=== PATIENT | male | born 1960 | race American Indian/Alaskan Native ===

== ENCOUNTER 2020-11-25 04:40 | Emergency (ER) | payer SELFPAY ==
[2020-11-25 04:59] VITALS: BP 169/92
== END 2020-11-25 05:30 | disposition left against medical advice (07) ==
LOC: ED 04:40
DX: M79.672 Pain in left foot (principal); M79.671 Pain in right foot; Z53.21 Procedure and treatment not carried out due to patient leaving prior to being seen by health care provider

== ENCOUNTER 2020-11-25 07:58 | Emergency (ER) | payer SELFPAY ==
--- NOTE | 2020-11-25 08:27 | Event Note ---
ED Screening Note ED Screening Note: SEEN INITIALLY AT WINDOW AND PT CO B FOOT PAIN CHECKED IN WITH BPM DEVELOPER FOR HBP This initial assessment/diagnostic orders/clinical plan/treatment(s) is/are subject to change based on patients health status, clinical progression and re- assessment by fellow clinical providers in the ED. Further treatment and workup at subsequent clinical providers discretion. Patient/guardian urged not to elope from the ED as their condition may be serious if not clinically assessed and managed. Initial orders include: CALLED FOR REEXAM 0830 AND NO ANSWER
[2020-11-25] MEDS ORDERED: IBUPROFEN 800 MG TAB PO ONE (11:29)
--- NOTE | 2020-11-25 11:29 | Emergency Department Report ---
ED General Adult HPI - General Chief complaint: High BP Stated complaint: FEET PAIN/HIGH BLOOD PRESSURE PUI?: No Time Seen by Provider: 11/25/20 10:41 Source: patient Mode of arrival: Ambulatory Limitations: No Limitations - History of Present Illness Initial comments: Patient is a 60-year-old -[place] male that comes to the emergency room for the second time today: See overnight note. When I checked him and he was complaining of bilateral foot pain. However, when the triage nurse saw him he said he was here for elevated blood pressure. He states that he is on amlodipine at home. He denies chest pain, shortness of breath, cough, fever. I suspect a social component to this visit. Want to look for patient once while in waiting room and he was not there. He then did return. Patient ambulatory, nontoxic and [id number] on arrival to the ER. He denies any trauma to his feet. Improves with: none Worsens with: none Associated Symptoms: denies other symptoms Treatments Prior to Arrival: none - Related Data Allergies Allergy/AdvReac Type Severity Reaction Status Date / Time No Known Allergies Allergy Verified 11/25/20 08:01 ED Review of Systems ROS: Stated complaint: FEET PAIN/HIGH BLOOD PRESSURE Other details as noted in HPI Comment: All other systems reviewed and negative ED Past Medical Hx - Past Medical History Previous Medical History?: Yes Hx Psychiatric Treatment: Yes (schizo) - Surgical History Past Surgical History?: No - Family History Family history: no significant - Social History Smoking Status: Unknown if ever smoked Substance Use Type: None ED Physical Exam - General Limitations: No Limitations General appearance: alert, in no apparent distress - Head Head exam: Present: atraumatic, normocephalic - Eye Eye exam: Present: normal appearance - ENT ENT exam: Present: mucous membranes moist - Neck Neck exam: Present: normal inspection - Respiratory Respiratory exam: Present: normal lung sounds bilaterally. Absent: respiratory distress - Cardiovascular Cardiovascular Exam: Present: regular rate, normal rhythm. Absent: systolic murmur, diastolic murmur, rubs, gallop - GI/Abdominal GI/Abdominal exam: Present: soft, normal bowel sounds - Rectal Rectal exam: Present: deferred - Extremities Exam Extremities exam: Present: normal inspection - Back Exam Back exam: Present: normal inspection - Neurological Exam Neurological exam: Present: alert, oriented X3 - Psychiatric Psychiatric exam: Present: normal affect, normal mood - Skin Skin exam: Present: warm, dry, intact, normal color. Absent: rash ED Course Vital Signs 11/25/20 11/25/20 11/25/20 08:05 11:34 12:49 Temperature 99.3 F Pulse Rate 90 62 61 Respiratory 20 18 Rate Blood Pressure 186/96 Blood Pressure 169/111 185/114 [Left] O2 Sat by Pulse 99 96 Oximetry ED Medical Decision Making - Medical Decision Making Acute on chronic hypertension no cp no sob no headache co b foot pain- given motrin Here overnight as well states he is taking his amlodipine ambulatory and in nad in ER taking po LEFT ER PER RN Vital Signs 11/25/20 11/25/20 08:05 11:34 Temperature 99.3 F Pulse Rate 90 62 Respiratory 20 Rate Blood Pressure 186/96 Blood Pressure 169/111 [Left] O2 Sat by Pulse 99 Oximetry - Differential Diagnosis htn Critical care attestation.: If time is entered above; I have spent that time in minutes in the direct care of this critically ill patient, excluding procedure time. ED Disposition Clinical Impression: Hypertension, Foot pain, bilateral Disposition: Z-07 ELOPED Is pt being admited?: No Does the pt Need Aspirin: No Condition: Stable Instructions: Hypertension (ED) Referrals: LEFTY HENDERSON MD [Staff Physician] - 3-5 Days Time of Disposition: 11:36
[2020-11-25] MEDS ORDERED: cloNIDine 0.2 MG TAB PO ONE (11:32)
[2020-11-25 12:51] VITALS: BP 185/114
== END 2020-11-25 13:00 | disposition left against medical advice (07) ==
LOC: ED 07:58
DX: I10 Essential (primary) hypertension (principal); M79.672 Pain in left foot; M79.671 Pain in right foot; F20.9 Schizophrenia, unspecified
CPT/HCPCS: 99282

== ENCOUNTER 2021-12-26 08:40 | Inpatient (IN) | payer MEDICAID ==
--- NOTE | 2021-12-26 09:41 | XRay Report ---
CHEST 2 VIEWS INDICATION / CLINICAL INFORMATION: CHEST. COMPARISON: 12/21/2021 FINDINGS: SUPPORT DEVICES: None. HEART / MEDIASTINUM: No significant abnormality. LUNGS / PLEURA: Mild interstitial edema and small moderate bilateral pleural effusions, right greater than left have improved. No pneumothorax. ADDITIONAL FINDINGS: No significant additional findings. IMPRESSION: 1. Resolving CHF Signer Name: Nimesh Sanon MD Signed: 12/26/2021 9:37 AM Workstation Name: [id number]
[2021-12-26 10:06] LABS: Basophils % (Auto) 0.7 % (0.0-1.8); Eosinophils # (Auto) 0.1 K/mm3 (0.0-0.4); Eosinophils % (Auto) 3.1 % (0.0-4.3); Hematocrit 28.9 % (35.5-45.6); Hemoglobin 8.7 gm/dl (11.8-15.2); Lymphocytes # (Auto) 0.6 K/mm3 (1.2-5.4); Lymphocytes % (Auto) 13.4 % (13.4-35.0); Mean Corpuscular HGB Conc 30 % (32-34); Mean Corpuscular Volume 72 fl (84-94); Monocytes # (Auto) 0.4 K/mm3 (0.0-0.8); Monocytes % (Auto) 9.6 % (0.0-7.3); Platelet Count 449 K/mm3 (140-440); Red Blood Count 4.02 M/mm3 (3.65-5.03); Red Cell Distribution Width 19.8 % (13.2-15.2)
[2021-12-26 10:38] LABS: Albumin 3.2 g/dL (3.9-5); Calcium 9.2 mg/dL (8.4-10.2)
[2021-12-26] MEDS ORDERED: NITROGLYCERIN 0.4 MG TAB SUBL SL ONE (21:24)
[2021-12-26] MEDS ORDERED: FUROSEMIDE 40 MG/4 ML INJ IV ONE (21:24)
[2021-12-26] MEDS ORDERED: ASPIRIN 81 MG TAB CHEW PO ONE (21:24)
[2021-12-26] MEDS ORDERED: ALBUTEROL 2.5 MG/3 ML NEBU IH STA (21:24)
[2021-12-26] MEDS ORDERED: IPRATROPIUM 0.02% NEBU 2.5 ML IH STA (21:24)
--- NOTE | 2021-12-26 21:29 | Emergency Department Report ---
ED General Adult HPI - General Chief complaint: Chest Pain Stated complaint: CHEST PAIN Time Seen by Provider: 12/26/21 21:06 Source: EMS Mode of arrival: Ambulatory Limitations: No Limitations - History of Present Illness Initial comments: Patient presents with complaints of chest pain, retrosternal, sharp/tightness, radiating to R shoulder, 10/10, not worsened or relieved by anything, associated with SOB, palpitations. Denies diaphoresis. Endorses leg swelling bilaterally but denies pain in his calves. Was recently discharged after a stay for the same complaints. No stress test was done @ the time. No stress test or cardiac cath in last 2 years in system. - Related Data Home Medications Medication Instructions Recorded Confirmed Last Taken Dorzolamide HCl/Timolol Maleat 1 drop UD DAILY 12/22/21 12/22/21 1 Day Ago [Dorzolamide-Timolol Eye Drops] ~12/21/21 Furosemide [Lasix] 40 mg PO DAILY 12/22/21 12/22/21 1 Day Ago ~12/21/21 Hydralazine HCl 50 mg BID 12/22/21 12/22/21 1 Day Ago ~12/21/21 50 mg Isosorbide Dinitrate [Isordil] 10 mg PO DAILY 12/22/21 12/22/21 1 Day Ago ~12/21/21 10 mg Latanoprost 0.005% 0.005 drop UD DAILY 12/22/21 12/22/21 1 Day Ago ~12/21/21 drops Potassium 20 mg PO DAILY 12/22/21 12/22/21 1 Day Ago ~12/21/21 20 mg amLODIPine 10 mg PO DAILY 12/22/21 12/22/21 1 Day Ago ~12/21/21 10 mg carvediloL [Coreg] 12.5 mg PO BID 12/22/21 12/22/21 1 Day Ago ~12/21/21 12.5mg glipiZIDE [Glucotrol] 5 mg PO BID 12/22/21 12/22/21 1 Day Ago ~12/21/21 40 mg Allergies Allergy/AdvReac Type Severity Reaction Status Date / Time No Known Allergies Allergy Verified 12/21/21 17:42 ED Review of Systems ROS: Stated complaint: CHEST PAIN Other details as noted in HPI Comment: All other systems reviewed and negative Constitutional: denies: chills, fever ED Past Medical Hx - Past Medical History Hx Hypertension: Yes Hx Heart Attack/AMI: No Hx Congestive Heart Failure: Yes Hx Diabetes: Yes Hx Deep Vein Thrombosis: No Hx Liver Disease: No Hx Arthritis: No Hx Psychiatric Treatment: Yes (schizo) Hx Asthma: Yes Hx COPD: No Hx HIV: No - Surgical History Hx Coronary Stent: No Hx Pacemaker: No Hx Internal Defibrillator: No - Social History Smoking Status: Never Smoker - Medications Home Medications: Home Medications Medication Instructions Recorded Confirmed Last Taken Type Dorzolamide HCl/Timolol Maleat 1 drop UD DAILY 12/22/21 12/22/21 1 Day Ago History [Dorzolamide-Timolol Eye Drops] ~12/21/21 Furosemide [Lasix] 40 mg PO DAILY 12/22/21 12/22/21 1 Day Ago History ~12/21/21 Hydralazine HCl 50 mg BID 12/22/21 12/22/21 1 Day Ago History ~12/21/21 50 mg Isosorbide Dinitrate [Isordil] 10 mg PO DAILY 12/22/21 12/22/21 1 Day Ago History ~12/21/21 10 mg Latanoprost 0.005% 0.005 drop UD DAILY 12/22/21 12/22/21 1 Day Ago History ~12/21/21 drops Potassium 20 mg PO DAILY 12/22/21 12/22/21 1 Day Ago History ~12/21/21 20 mg amLODIPine 10 mg PO DAILY 12/22/21 12/22/21 1 Day Ago History ~12/21/21 10 mg carvediloL [Coreg] 12.5 mg PO BID 12/22/21 12/22/21 1 Day Ago History ~12/21/21 12.5mg glipiZIDE [Glucotrol] 5 mg PO BID 12/22/21 12/22/21 1 Day Ago History ~12/21/21 40 mg ED Physical Exam - General Limitations: No Limitations General appearance: alert, in no apparent distress - Head Head exam: Present: atraumatic, normocephalic - Eye Eye exam: Present: PERRL, EOMI - ENT ENT exam: Present: mucous membranes moist, other (airway patent) - Neck Neck exam: Present: other (supple; no JVD) - Respiratory Respiratory exam: Present: other (poor air entry, prolonged expiratory phase, diffuse expiratory wheezes, no use of ARMIN) - Cardiovascular Cardiovascular Exam: Present: regular rate. Absent: rubs, gallop - GI/Abdominal GI/Abdominal exam: Present: soft, normal bowel sounds. Absent: distended, tenderness - Extremities Exam Extremities exam: Present: other (2+ edema in shins bilaterally, R=L; non tender calves; neg Hector's sign bilaterally) - Back Exam Back exam: Present: full ROM. Absent: CVA tenderness (R), CVA tenderness (L) - Neurological Exam Neurological exam: Present: alert, oriented X3, CN II-XII intact. Absent: motor sensory deficit - Skin Skin exam: Present: warm, normal color ED Course Vital Signs 12/26/21 12/26/21 12/26/21 08:44 21:07 21:10 Temperature 98 F Pulse Rate 90 87 Respiratory 18 24 Rate Blood Pressure 136/78 160/98 [Right] O2 Sat by Pulse 97 97 Oximetry ED Medical Decision Making - Lab Data Result diagrams: 12/26/21 09:16 12/26/21 09:16 Laboratory Tests 12/26/21 12/26/21 12/26/21 09:16 09:16 12:04 WBC 4.3 L RBC 4.02 Hgb 8.7 L Hct 28.9 L MCV 72 L MCH 22 L MCHC 30 L RDW 19.8 H Plt Count 449 H Lymph % (Auto) 13.4 [place] % (Auto) 9.6 H Eos % (Auto) 3.1 Baso % (Auto) 0.7 Lymph # (Auto) 0.6 L [place] # (Auto) 0.4 Eos # (Auto) 0.1 Baso # (Auto) 0.0 Seg Neutrophils % 73.2 H Seg Neutrophils # 3.2 Sodium 140 Potassium 3.6 Chloride 103.7 Carbon Dioxide 26 Anion Gap 14 BUN 37 H Creatinine 2.7 H Estimated GFR 29 BUN/Creatinine Ratio 14 Glucose 407 H Calcium 9.2 Total Bilirubin 0.30 AST 20 ALT 24 Alkaline Phosphatase 186 H Troponin T 0.019 0.013 Total Protein 6.8 Albumin 3.2 L Albumin/Globulin Ratio 0.9 12/26/21 17:35 WBC RBC Hgb Hct MCV MCH MCHC RDW Plt Count Lymph % (Auto) [place] % (Auto) Eos % (Auto) Baso % (Auto) Lymph # (Auto) [place] # (Auto) Eos # (Auto) Baso # (Auto) Seg Neutrophils % Seg Neutrophils # Sodium Potassium Chloride Carbon Dioxide Anion Gap BUN Creatinine Estimated GFR BUN/Creatinine Ratio Glucose Calcium Total Bilirubin AST ALT Alkaline Phosphatase Troponin T 0.011 Total Protein Albumin Albumin/Globulin Ratio CXR: bilateral infiltrates EKG: HR 84, SR, nml MI, narrow QRS, TWF/I in I, aVL, II, III, aVF, V4 - V6, no significant ST changes in contiguous leads HEART score 6 Critical care attestation.: If time is entered above; I have spent that time in minutes in the direct care of this critically ill patient, excluding procedure time. ED Disposition Clinical Impression: CHF exacerbation, Asthma exacerbation, Chest pain Disposition: ADMITTED INPATIENT Is pt being admited?: Yes Does the pt Need Aspirin: No Condition: Stable Instructions: Nonspecific Chest Pain, Adult Time of Disposition: 21:30 (Patient admitted to Dr. Rodarte. Sign out was called by me to the admitting physician.)
[2021-12-26] MEDS ORDERED: MAGNESIUM HYDROXIDE (MOM) ORAL LIQD UDC PO PRN (22:16)
[2021-12-26] MEDS ORDERED: NITROGLYCERIN 0.4 MG TAB SUBL SL PRN (22:16)
[2021-12-26] MEDS ORDERED: ACETAMINOPHEN 325 MG TAB PO PRN ×2 (22:16)
[2021-12-26] MEDS ORDERED: MORPHINE 4 MG/1 ML INJ IV PRN ×2 (22:16)
[2021-12-26] MEDS ORDERED: MORPHINE 2 MG/1 ML INJ IV PRN ×2 (22:16)
[2021-12-26] MEDS ORDERED: ONDANSETRON 4 MG/2 ML INJ IV PRN (22:16)
[2021-12-26] MEDS ORDERED: traMADol 50 MG TAB PO PRN (22:16)
[2021-12-26] MEDS ORDERED: DEXTROSE 50% IN WATER (25GM) 50 ML SYRINGE IV PRN (22:16)
--- NOTE | 2021-12-26 22:29 | History and Physical Report ---
History of Present Illness Date of examination: 12/26/21 Date of admission: 12/26/2021 Chief complaint: Chest pain Shortness of Breath History of present illness: 61-year-old male with significant past medical history of hypertension, congestive heart failure and diabetes mellitus presenting in the emergency room today complaining of chest pain. Chest pain is said to be substernal. He has had associated shortness of breath. He denies any headache or dizziness and no diaphoresis. Chest pain has been radiating towards the right shoulder. No known relieving or exacerbating factor. Patient also indicates that he has been having progressive swelling of his lower extremities. He was just recently discharged from the hospital with similar complaints. He had an echocardiogram on December 21, 2021 showing ejection fraction of 35%. Patient has not had any stress test in the last few years. Work-up in the emergency room today, lab is significant for hyperglycemia of 407. BUN of 37 creatinine of 2.7. Troponin has been negative. Chest x-ray shows resolving CHF. Past History Past Medical History: diabetes, heart failure, hypertension, other (Schizophrenia,Asthma) Past Surgical History: No surgical history Social history: no significant social history Family history: no significant family history Medications and Allergies Allergies Allergy/AdvReac Type Severity Reaction Status Date / Time No Known Allergies Allergy Verified 12/21/21 17:42 Home Medications Medication Instructions Recorded Confirmed Last Taken Type Dorzolamide HCl/Timolol Maleat 1 drop UD DAILY 12/22/21 12/22/21 1 Day Ago History [Dorzolamide-Timolol Eye Drops] ~12/21/21 Furosemide [Lasix] 40 mg PO DAILY 12/22/21 12/22/21 1 Day Ago History ~12/21/21 Hydralazine HCl 50 mg BID 12/22/21 12/22/21 1 Day Ago History ~12/21/21 50 mg Isosorbide Dinitrate [Isordil] 10 mg PO DAILY 12/22/21 12/22/21 1 Day Ago History ~12/21/21 10 mg Latanoprost 0.005% 0.005 drop UD DAILY 12/22/21 12/22/21 1 Day Ago History ~12/21/21 drops Potassium 20 mg PO DAILY 12/22/21 12/22/21 1 Day Ago History ~12/21/21 20 mg amLODIPine 10 mg PO DAILY 12/22/21 12/22/21 1 Day Ago History ~12/21/21 10 mg carvediloL [Coreg] 12.5 mg PO BID 12/22/21 12/22/21 1 Day Ago History ~12/21/21 12.5mg glipiZIDE [Glucotrol] 5 mg PO BID 12/22/21 12/22/21 1 Day Ago History ~12/21/21 40 mg Active Meds: Active Medications Acetaminophen (Acetaminophen 325 Mg Tab) 650 mg PO Q6H PRN PRN Reason: Pain, Mild (1-3) Acetaminophen (Acetaminophen 325 Mg Tab) 650 mg PO Q4H PRN PRN Reason: Pain MILD(1-3)/Fever >100.5/LU Aspirin (Aspirin Ec 325 Mg Tab) 325 mg PO QDAY PAT Dextrose (Dextrose 50% In Water (25gm) 50 Ml Syringe) 50 ml IV Q30MIN PRN; Protocol PRN Reason: Hypoglycemia Dextrose (Dextrose 50% In Water (25gm) 50 Ml Syringe) 50 ml IV Q30MIN PRN; Protocol PRN Reason: Hypoglycemia Heparin Sodium (Porcine) (Heparin 5,000 Unit/1 Ml Vial) 5,000 unit SUB-Q Q8HR PAT Insulin Human Lispro (Insulin Lispro 100 Unit/Ml) 0 unit SUB-Q ACHS PAT; Protocol Magnesium Hydroxide (Magnesium Hydroxide (Mom) Oral Liqd Udc) 30 ml PO Q4H PRN PRN Reason: Constipation Morphine Sulfate (Morphine 4 Mg/1 Ml Inj) 2 mg IV Q5MIN PRN PRN Reason: Chest Pain unrelieved by NTG Morphine Sulfate (Morphine 2 Mg/1 Ml Inj) 2 mg IV Q4H PRN PRN Reason: Pain, Moderate (4-6) Morphine Sulfate (Morphine 4 Mg/1 Ml Inj) 4 mg IV Q4H PRN PRN Reason: Pain , Severe (7-10) Morphine Sulfate (Morphine 2 Mg/1 Ml Inj) 2 mg IV Q5MIN PRN PRN Reason: Chest Pain unrelieved by NTG Nitroglycerin (Nitroglycerin 0.4 Mg Tab Subl) 0.4 mg SL .Q5MIN PRN PRN Reason: Chest Pain Ondansetron HCl (Ondansetron 4 Mg/2 Ml Inj) 4 mg IV Q8H PRN PRN Reason: Nausea And Vomiting Sodium Chloride (Sodium Chloride 0.9% 10 Ml Flush Syringe) 10 ml IV PRN PRN PRN Reason: LINE FLUSH Sodium Chloride (Sodium Chloride 0.9% 10 Ml Flush Syringe) 10 ml IV BID PAT Sodium Chloride (Sodium Chloride 0.9% 10 Ml Flush Syringe) 10 ml IV PRN PRN PRN Reason: LINE FLUSH Tramadol HCl (Tramadol 50 Mg Tab) 50 mg PO Q6H PRN PRN Reason: Pain, Moderate (4-6) Review of Systems Constitutional: no fever, no chills Ears, nose, mouth and throat: no nasal congestion Cardiovascular: chest pain, no orthopnea, no palpitations Respiratory: shortness of breath, no cough Gastrointestinal: no nausea, no vomiting, no diarrhea Genitourinary Male: no dysuria, no hematuria, no nocturia Musculoskeletal: no neck pain, no low back pain Integumentary: no rash, no pruritis Neurological: no headaches, no confusion Psychiatric: no anxiety, no depression Endocrine: no polyphagia, no polydipsia, no polyuria, no nocturia Exam - Constitutional Vitals: Temp Pulse Resp BP Pulse Ox 98 F 90 20 162/95 96 12/26/21 08:44 12/26/21 22:16 12/26/21 22:16 12/26/21 22:16 12/26/21 22:20 General appearance: Present: no acute distress, well-nourished - EENT Eyes: Present: PERRL, EOM intact. Absent: scleral icterus ENT: hearing intact, clear oral mucosa, dentition normal - Neck Neck: Present: supple, normal ROM - Respiratory Respiratory effort: normal Respiratory: bilateral: rales - Cardiovascular Rhythm: regular Heart Sounds: Present: S1 & S2. Absent: systolic murmur, diastolic murmur, rub, click - Extremities Extremities: no ischemia, pulses intact, pulses symmetrical, normal temperature, Full ROM Extremity abnormal: edema (1+ bilateral ankle edema) Peripheral Pulses: within normal limits - Abdominal General gastrointestinal: Present: soft, non-tender, non-distended, normal bowel sounds. Absent: mass - Integumentary Integumentary: Present: clear, warm, dry, normal turgor. Absent: rash - Musculoskeletal Musculoskeletal: strength equal bilaterally - Psychiatric Psychiatric: appropriate mood/affect, memory intact, cooperative - Neurologic Neurologic: CNII-XII intact, no focal deficits, moves all extremities HEART Score - HEART Score History: Moderately suspicious EKG: Non-specific Age: 45-65 Risk factors: 1-2 risk factors Troponin: Troponin T 0.011 ng/mL (0.00-0.029) 12/26/21 17:35 Troponin: < normal limit HEART Score: 4 Results - Labs CBC & Chem 7: 12/26/21 09:16 12/26/21 17:35 Labs: Abnormal lab results 12/26/21 12/26/21 Range/Units 09:16 09:16 WBC 4.3 L (4.5-11.0) K/mm3 Hgb 8.7 L (11.8-15.2) gm/dl Hct 28.9 L (35.5-45.6) % MCV 72 L (84-94) fl MCH 22 L (28-32) pg MCHC 30 L (32-34) % RDW 19.8 H (13.2-15.2) % Plt Count 449 H (140-440) K/mm3 [place] % (Auto) 9.6 H (0.0-7.3) % Lymph # (Auto) 0.6 L (1.2-5.4) K/mm3 Seg Neutrophils % 73.2 H (40.0-70.0) % BUN 37 H (9-20) mg/dL Creatinine 2.7 H (0.8-1.3) mg/dL Glucose 407 H (75-100) mg/dL Alkaline Phosphatase 186 H (35-129) units/L Albumin 3.2 L (3.9-5) g/dL Assessment and Plan - Patient Problems (1) Chest pain Current Visit: No Status: Inactive Plan to address problem: Serial cardiac enzymes has been negative. Will place patient on daily aspirin, sublingual nitroglycerin and IV morphine as needed for chest pain. Consult placed to cardiology for further evaluation and recommendations. (2) CHF exacerbation Current Visit: No Status: Acute Qualifiers: Plan to address problem: We will continue patient on diuretics. Will monitor inputs and output and also monitor daily weight. Echocardiogram done on 12/21/2021 shows EF of 35%. Will await further recommendations from cardiology. (3) Diabetes mellitus Current Visit: No Status: Acute Plan to address problem: Patient will be placed on sliding scale insulin. Will monitor Accu-Cheks closely. (4) Schizophrenia Current Visit: No Status: Acute Qualifiers: Schizophrenia type: unspecified Qualified Code(s): F20.9 - Schizophrenia, unspecified Plan to address problem: Continue routine home medications. (5) Hypertension Current Visit: Yes Status: Acute Plan to address problem: We will resume routine home medications and monitor vital signs closely. (6) CKD (chronic kidney disease) Current Visit: Yes Status: Acute Plan to address problem: Possibly secondary to cardiorenal syndrome. Will request nephrology follow up. (7) DVT prophylaxis Current Visit: No Status: Acute Plan to address problem: Patient placed on subcutaneous heparin. (8) Full code status Current Visit: No Status: Acute Plan to address problem: Patient is full code.
[2021-12-26 23:33] LABS: Calcium 9.8 mg/dL (8.4-10.2)
[2021-12-27] MEDS ORDERED: DEXTROSE 50% IN WATER (25GM) 50 ML SYRINGE IV PRN (02:05)
[2021-12-27] MEDS: INSULIN LISPRO 100 UNIT/ML SUB-Q SCH ×5 (02:13→23:10)
[2021-12-27 05:15] LABS: Basophils # (Auto) 0.1 K/mm3 (0.0-0.1); Eosinophils # (Auto) 0.2 K/mm3 (0.0-0.4); Eosinophils % (Auto) 4.2 % (0.0-4.3); Hematocrit 28.7 % (35.5-45.6); Hemoglobin 8.9 gm/dl (11.8-15.2); Lymphocytes # (Auto) 0.8 K/mm3 (1.2-5.4); Mean Corpuscular HGB Conc 31 % (32-34); Monocytes # (Auto) 0.6 K/mm3 (0.0-0.8); Monocytes % (Auto) 11.1 % (0.0-7.3); Platelet Count 470 K/mm3 (140-440)
[2021-12-27 05:20] LABS: Mean Corpuscular Volume 70 fl (84-94); Red Cell Distribution Width 20.1 % (13.2-15.2)
[2021-12-27 05:36] LABS: Calcium 9.4 mg/dL (8.4-10.2)
[2021-12-27] MEDS: HEPARIN 5,000 UNIT/1 ML VIAL SUB-Q SCH ×3 (06:06→23:10)
--- NOTE | 2021-12-27 07:36 | Consultation ---
History of Present Illness - Reason for Consult Consult date: 12/27/21 chronic renal failure Requesting physician: SYLVIA FRANK - History of Present Illness 61-year-old male with a history of diabetes mellitus, hypertension chronic systolic heart failure presents with chest pain radiating to the right shoulder. Patient rates pain as a 10 out of 10 and describes it as sharp and sometimes a tightness. He admits to shortness of breath but no cough. He also admits to lower extremity swelling. No known aggravating or relieving factors. Labs on presentation showed BUN/creatinine elevated now 37/2.7 mg/dL with hemoglobin low at 8.7 g/dL. I am consulted to assist with managing chronic kidney disease. Patient says he has been taking his medications regularly and adhering to diet. He however lives alone. Past History Past Medical History: diabetes, heart failure (Ejection fraction 35% December 21, 2021), hypertension, other (Schizophrenia,Asthma) Past Surgical History: No surgical history Social history: Lives alone, smoking (Smokes cigarettes occasionally), other (Sa ys he just got out of the [employer] after 31 years of service about 3 months ago. His last tour of duty was in [facility]). denies: alcohol abuse, prescription drug abuse, IV drug use Family history: diabetes (Mother had diabetes mellitus. She is cause of no known to him. He has 6 siblings but does not know about their medical problems) Medications and Allergies Allergies Allergy/AdvReac Type Severity Reaction Status Date / Time No Known Allergies Allergy Verified 12/21/21 17:42 Home Medications Medication Instructions Recorded Confirmed Last Taken Type Dorzolamide HCl/Timolol Maleat 1 drop UD DAILY 12/22/21 12/22/21 1 Day Ago History [Dorzolamide-Timolol Eye Drops] ~12/21/21 Latanoprost 0.005% 0.005 drop UD DAILY 12/22/21 12/22/21 1 Day Ago History ~12/21/21 drops Potassium 20 mg PO DAILY 12/22/21 12/22/21 1 Day Ago History ~12/21/21 20 mg Furosemide [Lasix] 40 mg PO DAILY #30 12/27/21 Unknown Rx Hydralazine HCl 50 mg PO BID #30 12/27/21 Unknown Rx Insulin NPH/Regular [NovoLIN 70/30] 10 unit SQ BIDDIAB 30 Days 12/27/21 Unknown Rx Isosorbide Dinitrate [Isordil] 10 mg PO DAILY #30 12/27/21 Unknown Rx amLODIPine 10 mg PO DAILY #30 12/27/21 Unknown Rx carvediloL [Coreg] 12.5 mg PO BID #60 12/27/21 Unknown Rx Active Meds: Active Medications Acetaminophen (Acetaminophen 325 Mg Tab) 650 mg PO Q4H PRN PRN Reason: Pain MILD(1-3)/Fever >100.5/LU Aspirin (Aspirin Ec 325 Mg Tab) 325 mg PO QDAY PAT Dextrose (Dextrose 50% In Water (25gm) 50 Ml Syringe) 50 ml IV Q30MIN PRN; Protocol PRN Reason: Hypoglycemia Heparin Sodium (Porcine) (Heparin 5,000 Unit/1 Ml Vial) 5,000 unit SUB-Q Q8HR [facility] Last Admin: 12/27/21 06:06 Dose: Not Given Insulin Human Lispro (Insulin Lispro 100 Unit/Ml) 0 unit SUB-Q ACHS [facility]; Protocol Last Admin: 12/27/21 02:13 Dose: 10 unit Magnesium Hydroxide (Magnesium Hydroxide (Mom) Oral Liqd Udc) 30 ml PO Q4H PRN PRN Reason: Constipation Morphine Sulfate (Morphine 4 Mg/1 Ml Inj) 2 mg IV Q5MIN PRN PRN Reason: Chest Pain unrelieved by NTG Morphine Sulfate (Morphine 2 Mg/1 Ml Inj) 2 mg IV Q4H PRN PRN Reason: Pain, Moderate (4-6) Morphine Sulfate (Morphine 4 Mg/1 Ml Inj) 4 mg IV Q4H PRN PRN Reason: Pain , Severe (7-10) Nitroglycerin (Nitroglycerin 0.4 Mg Tab Subl) 0.4 mg SL .Q5MIN PRN PRN Reason: Chest Pain Ondansetron HCl (Ondansetron 4 Mg/2 Ml Inj) 4 mg IV Q8H PRN PRN Reason: Nausea And Vomiting Sodium Chloride (Sodium Chloride 0.9% 10 Ml Flush Syringe) 10 ml IV PRN PRN PRN Reason: LINE FLUSH Sodium Chloride (Sodium Chloride 0.9% 10 Ml Flush Syringe) 10 ml IV BID PAT Sodium Chloride (Sodium Chloride 0.9% 10 Ml Flush Syringe) 10 ml IV PRN PRN PRN Reason: LINE FLUSH Tramadol HCl (Tramadol 50 Mg Tab) 50 mg PO Q6H PRN PRN Reason: Pain, Moderate (4-6) Review of Systems All systems: negative (Constitutional: no fever or chills. No anorexia or weight loss. HEENT: No sore throat or sinus drainage no hearing or vision impairment . Cardiovascular: Admits to chest pain, palpitations, Has lower extremity swelling but no dizziness. Respiratory: No cough, sputum, admits to SOB) Gastrointestinal: no abdominal pain, no nausea, no vomiting, no diarrhea, no constipation, no hematemesis Genitourinary Male: no dysuria, no hematuria, no discharge, no urinary frequency, no urinary hesitancy Musculoskeletal: no neck stiffness, no hot joints, no muscle weakness Integumentary: no rash, no pruritis Neurological: no paralysis, no weakness, no numbness, no convulsions Psychiatric: no anxiety, no depression Endocrine: no cold intolerance, no heat intolerance Exam - Vital Signs Vital signs: Vital Signs Temp Pulse Resp BP Pulse Ox 98 F 90 18 136/78 97 12/26/21 08:44 12/26/21 08:44 12/26/21 08:44 12/26/21 08:44 12/26/21 08:44 - Physical Exam Narrative exam: Middle-aged -Japanese male lying in bed looks older than stated age in no acute distress HEENT: NCAT, pale conjunctiva anicteric sclera Neck: Supple, no venous distention CVS: S1S2 RRR with no murmur, rub or gallop Chest: Clear to auscultation Abdomen: Protuberant, soft, nontender, no organomegaly, edema anterior abdominal wall bowel sounds are present Extremities: 2-3+ pitting edema edema Genitourinary deferred Skin warm and dry Neuro: Awake, alert no focal deficits Results - Lab Results 12/27/21 04:18 12/27/21 04:18 Most recent lab results Calcium 9.4 mg/dL (8.4-10.2) 12/27/21 04:18 Assessment and Plan - Patient Problems (1) Chronic kidney disease, stage 3b Current Visit: Yes Status: Acute Plan to address problem: Chronic kidney disease presumably secondary to diabetic kidney disease with superimposed hypertensive nephrosclerosis. Kidney function is close to his baseline. Monitor renal function with diuresis. (2) Chest pain Current Visit: Yes Status: Acute Plan to address problem: Roll Off Driver has been consulted. Stress test planned (3) Hypokalemia Current Visit: Yes Status: Acute Plan to address problem: Hypokalemia secondary to renal losses with diuretics. Supplement potassium and follow-up level (4) Acute on chronic HFrEF (heart failure with reduced ejection fraction) Current Visit: Yes Status: Acute Plan to address problem: Continue IV diuretics. Strict intake and output monitoring. 2 g sodium 40 ounces per day fluid restriction. (5) Type 2 diabetes mellitus with diabetic chronic kidney disease Current Visit: Yes Status: Acute Plan to address problem: Blood sugar management by primary attending (6) Hypertensive chronic kidney disease with stage 1 through stage 4 chronic kidney disease, or unspecified chronic kidney disease Current Visit: Yes Status: Acute Plan to address problem: Follow-up blood pressure on current medications (7) Anemia in chronic kidney disease Current Visit: Yes Status: Acute Plan to address problem: Follow-up hemoglobin. Check iron stores. Will need to start erythropoiesis stimulating agent as an outpatient
[2021-12-27] MEDS ORDERED: REGADENOSON 0.4 MG/5 ML INJ IV ONE (08:19)
[2021-12-27] MEDS ORDERED: ASPIRIN EC 325 MG TAB PO SCH (10:00)
--- NOTE | 2021-12-27 13:34 | Discharge Summary ---
Providers - Providers Date of Admission: 12/26/21 22:17 Date of discharge: 12/27/21 Attending physician: GALLITO LESLIE 12/26/21 22:17 Consult to Dietitian/Nutrition [CONS] Routine Physician Instructions: Reason For Exam: Reason for Consult: Diet education 12/27/21 00:19 Consult to Physician [CONS] Routine Comment: Consulting Provider: BEN MENDIETA Physician Instructions: Reason For Exam: CKD 12/27/21 02:06 Consult to Dietitian/Nutrition [CONS] Routine Physician Instructions: Reason For Exam: Reason for Consult: Diet education Primary care physician: LEFTY HENDERSON Hospitalization Condition: Stable Disposition: HOME / SELF CARE / HOMELESS Final Discharge Diagnosis (Prints w/discharge instructions): -- Acute on chronic CHF exacerbation. -- JG on CKD possible vasomotor nephropathy versus cardiorenal syndrome. -- Hypertension, uncontrolled. -- Schizophrenia. -- Hypokalemia. -- Diabetes mellitus type 2 with hyperglycemia Time spent for discharge: 34 minutes Core Measure Documentation - Palliative Care Palliative Care/ Comfort Measures: Not Applicable - Core Measures Any of the following diagnoses?: heart failure - Heart Failure Discharge Requirements EDENILSON/ARB for LVSD if EF <40%: Not Applicable Reason for no EDENILSON/ARB: Renal impairment Beta paulo at discharge: Yes Exam - Physical Exam Narrative exam: GENERAL: Elderly -Beninese male lying on bed appeared to be in no d iscomfort. HEENT: Normocephalic. Atraumatic. No conjunctival congestion or icterus. Patient has moist mucous membranes. NECK: Supple. Trachea midline. CHEST/LUNGS: Clear to auscultated bilaterally, breathing nonlabored. No wheezes crackles or rhonchi. HEART/CARDIOVASCULAR: Regular in rate and rhythm. S1 and S2 positive. ABDOMEN: Abdomen is soft, nontender. Patient has normal bowel sounds. SKIN: There is no rash. Warm and dry. NEURO: No focal motor deficit. Follows command. MUSCULOSKELETAL: No joint effusion or tenderness. EXTRIMITY: trace edema b/l, no cyanosis or clubbing. PSYCH: Cooperative. - Constitutional Vitals: Temp Pulse Resp BP Pulse Ox 98.0 F 88 20 152/84 96 12/27/21 11:33 12/27/21 11:33 12/27/21 11:33 12/27/21 11:33 12/27/21 11:55 Plan Activity: advance as tolerated Weight Bearing Status: Weight Bear as Tolerated Diet: low fat, low salt Special Instructions: restrict fluid intake to (1.2L daily), record daily BP diary, record blood sugar diary Follow up with: LEFTY HENDERSON MD [Primary Care Provider] - 7 Days ANDI VIZCARRA MD [Staff Physician] - 7 Days Prescriptions: amLODIPine 10 mg PO DAILY #30 carvediloL [Coreg] 12.5 mg PO BID #60 Hydralazine HCl 50 mg PO BID #30 Isosorbide Dinitrate [Isordil] 10 mg PO DAILY #30 Furosemide [Lasix] 40 mg PO DAILY #30 Insulin NPH/Regular [NovoLIN 70/30] 10 unit SQ BIDDIAB 30 Days
[2021-12-28] MEDS: HEPARIN 5,000 UNIT/1 ML VIAL SUB-Q SCH (06:36)
--- NOTE | 2021-12-28 08:30 | Progress Note ---
Assessment and Plan Assessment and plan: --Malignant hypertension This morning blood pressure is 187/ 94 Patient not on antihypertensives We will add hydralazine oral and IV Closely monitor --Diabetes mellitus Accu-Chek sliding scale coverage ADA diet Patient's blood sugars are in 300s to 400s, not on any long-acting insulin Will add Novolin 70/30 10 units twice a day and adjust the dose as needed Check A1c Diabetic diet education and diabetes education prior to discharge -- Chest pain Serial cardiac enzymes has been negative. Will place patient on daily aspirin, sublingual nitroglycerin and IV morphine as needed for chest pain. Consult placed to cardiology for further evaluation and recommendations. --Acute on chronic systolic congestive heart failure Continue antifailure medications Will monitor inputs and output and also monitor daily weight. Echocardiogram done on 12/21/2021 shows EF of 35%. Will await further recommendations from cardiology. --History of schizophrenia Continue routine home medications. Psych consulted, follow recommendations --CKD (chronic kidney disease) Possibly secondary to cardiorenal syndrome. Will request nephrology follow up. --DVT prophylaxis Patient placed on subcutaneous heparin. --Full code status Patient is full code. Follow consults and recommendations Follow psych evaluation recommendation Monitor blood sugars and blood pressures Discharge when cleared by psychiatrist . Plan of care reviewed with the patient, his nurse and the case management Closely monitor the patient and adjust the management as needed History Interval history: I have seen and examined the patient at the bedside Patient's chart and medications reviewed Awaiting psych evaluation No new complaints Vital signs noted Hospitalist Physical - Constitutional Vitals: Temp Pulse Resp BP Pulse Ox 98.9 F 97 H 18 187/94 98 12/28/21 07:33 12/28/21 07:33 12/28/21 07:33 12/28/21 07:33 12/28/21 08:05 General appearance: Present: no acute distress, well-nourished - EENT Eyes: Present: PERRL, EOM intact - Neck Neck: Present: supple, normal ROM - Respiratory Respiratory effort: normal Respiratory: bilateral: diminished, negative: rales, rhonchi, wheezing - Cardiovascular Rhythm: regular Heart Sounds: Present: S1 & S2 - Extremities Extremities: no ischemia, No edema - Abdominal General gastrointestinal: soft, non-tender, non-distended, normal bowel sounds - Integumentary Integumentary: Present: clear, warm - Psychiatric Psychiatric: appropriate mood/affect, cooperative - Neurologic Neurologic: moves all extremities HEART Score - HEART Score EKG: Non-specific Age: 45-65 Risk factors: 1-2 risk factors Troponin: Troponin T 0.014 ng/mL (0.00-0.029) 12/27/21 04:18 Troponin: < normal limit Results - Labs CBC & Chem 7: 12/27/21 04:18 12/28/21 10:09 Labs: Laboratory Last Values WBC 5.2 K/mm3 (4.5-11.0) 12/27/21 04:18 RBC 4.10 M/mm3 (3.65-5.03) 12/27/21 04:18 Hgb 8.9 gm/dl (11.8-15.2) L 12/27/21 04:18 Hct 28.7 % (35.5-45.6) L 12/27/21 04:18 MCV 70 fl (84-94) L 12/27/21 04:18 MCH 22 pg (28-32) L 12/27/21 04:18 MCHC 31 % (32-34) L 12/27/21 04:18 RDW 20.1 % (13.2-15.2) H 12/27/21 04:18 Plt Count 470 K/mm3 (140-440) H 12/27/21 04:18 Lymph % (Auto) 16.0 % (13.4-35.0) 12/27/21 04:18 Power % (Auto) 11.1 % (0.0-7.3) H 12/27/21 04:18 Eos % (Auto) 4.2 % (0.0-4.3) 12/27/21 04:18 Baso % (Auto) 1.0 % (0.0-1.8) 12/27/21 04:18 Lymph # (Auto) 0.8 K/mm3 (1.2-5.4) L 12/27/21 04:18 Power # (Auto) 0.6 K/mm3 (0.0-0.8) 12/27/21 04:18 Eos # (Auto) 0.2 K/mm3 (0.0-0.4) 12/27/21 04:18 Baso # (Auto) 0.1 K/mm3 (0.0-0.1) 12/27/21 04:18 Seg Neutrophils % 67.7 % (40.0-70.0) 12/27/21 04:18 Seg Neutrophils # 3.5 K/mm3 (1.8-7.7) 12/27/21 04:18 Sodium 140 mmol/L (137-145) 12/27/21 04:18 Potassium 3.1 mmol/L (3.6-5.0) L 12/27/21 04:18 Chloride 102.9 mmol/L (98-107) 12/27/21 04:18 Carbon Dioxide 25 mmol/L (22-30) 12/27/21 04:18 Anion Gap 15 mmol/L 12/27/21 04:18 BUN 31 mg/dL (9-20) H 12/27/21 04:18 Creatinine 2.4 mg/dL (0.8-1.3) H 12/27/21 04:18 Estimated GFR 34 ml/min 12/27/21 04:18 BUN/Creatinine Ratio 13 % 12/27/21 04:18 Glucose 246 mg/dL (75-100) H 12/27/21 04:18 POC Glucose 369 mg/dL (70-105) H 12/27/21 20:27 Calcium 9.4 mg/dL (8.4-10.2) 12/27/21 04:18 Total Bilirubin 0.30 mg/dL (0.1-1.2) 12/26/21 09:16 AST 20 units/L (5-40) 12/26/21 09:16 ALT 24 units/L (7-56) 12/26/21 09:16 Alkaline Phosphatase 186 units/L (35-129) H 12/26/21 09:16 Troponin T 0.014 ng/mL (0.00-0.029) 12/27/21 04:18 Total Protein 6.8 g/dL (6.3-8.2) 12/26/21 09:16 Albumin 3.2 g/dL (3.9-5) L 12/26/21 09:16 Albumin/Globulin Ratio 0.9 % 12/26/21 09:16 Hall/IV: Voiding Method Toilet Active Medications - Current Medications Current Medications: Generic Name Dose Route Start Last Admin Trade Name Freq PRN Reason Stop Dose Admin Acetaminophen 650 mg 12/26/21 22:16 Acetaminophen 325 Mg Tab PO Q4H PRN Pain MILD(1-3)/Fever >100.5/LU Dextrose 50 ml 12/26/21 22:16 Dextrose 50% In Water (25gm) 50 Ml Syringe IV Q30MIN PRN Hypoglycemia Protocol Heparin Sodium (Porcine) 5,000 unit 12/27/21 06:00 12/28/21 06:36 Heparin 5,000 Unit/1 Ml Vial SUB-Q Not Given Q8HR [facility] Hydralazine HCl 50 mg 12/28/21 14:00 Hydralazine 25 Mg Tab PO Q8HR [facility] Hydralazine HCl 20 mg 12/28/21 08:20 Hydralazine 20 Mg/1 Ml Inj IV 12/28/21 08:21 ONCE ONE Hydralazine HCl 10 mg 12/28/21 08:21 Hydralazine 20 Mg/1 Ml Inj IV Q4HR PRN Hypertension Insulin Human Isoph/Insulin Regular 10 unit 12/28/21 17:00 Insulin Nph/Regular 70/30 Inj SUB-Q BIDDIAB [facility] Insulin Human Lispro 0 unit 12/27/21 02:00 12/27/21 23:10 Insulin Lispro 100 Unit/Ml SUB-Q Not Given ACHS [facility] Protocol Magnesium Hydroxide 30 ml 12/26/21 22:16 Magnesium Hydroxide (Mom) Oral Liqd Udc PO Q4H PRN Constipation Morphine Sulfate 2 mg 12/26/21 22:16 Morphine 2 Mg/1 Ml Inj IV Q4H PRN Pain, Moderate (4-6) Morphine Sulfate 4 mg 12/26/21 22:16 Morphine 4 Mg/1 Ml Inj IV Q4H PRN Pain , Severe (7-10) Nitroglycerin 0.4 mg 12/26/21 22:16 Nitroglycerin 0.4 Mg Tab Subl SL .Q5MIN PRN Chest Pain Ondansetron HCl 4 mg 12/26/21 22:16 Ondansetron 4 Mg/2 Ml Inj IV Q8H PRN Nausea And Vomiting Sodium Chloride 10 ml 12/27/21 10:00 12/27/21 23:11 Sodium Chloride 0.9% 10 Ml Flush Syringe IV Not Given BID [facility] Nutrition/Malnutrition Assess - Dietary Evaluation Nutrition/Malnutrition Findings: Nutrition Notes Start: 12/27/21 16:42 Freq: Status: Active Protocol: Document 12/27/21 16:42 ANAI (Rec: 12/27/21 17:08 ANAI [email or web address]) Nutrition Notes Need for Assessment generated from: MD Order,twist tester,Education Initial or Follow up Assessment Current Diagnosis Acute Kidney Injury,CKD(stage I-IV),Diabetes,Hypertension, Heart Failure Other Pertinent Diagnosis CHF, Bilateral LE Swelling, Chest Pain, Asthma, Schizophrenia. Current Diet Cardiac/Consistent Carbohydrates -Renal- Diet ( since B 12/28). Labs/Tests 12/27: K 3.1, BUN 31, Crea 2.4 , Glu 246. Pertinent Medications 12/27: Nutritionally unremarkable. Height 6 ft 3 in Weight 108 kg [place] Body Weight (kg) 89.09 BMI 29.7 Intake Prior to Admission Good Weight change and time frame Pt denies having loss body weight LABEL REWINDER. Weight Status Overweight Subjective/Other Information RD consult for New Onset Diabetes Education Assessment. No reports available on Pt's PO intake of meals at the time . I will change diet to Cardiac/ Consistent Carbohydrates with Renal modification, to better serve pt's JG/CKD, CHF and T2DM conditions. Pt is on Room Air, O2 saturation @ 96%, according to Physical Assessment History notes. Pt has missing teeth, according to Physical Assessment History notes. Pt has long Hx of diabetes, not a candidate for diabetes education, according to History & Physical notes. Plans for discharge Pt on , according to Progress notes. Percent of energy/protein needs met: Prescribed Cardiac/Consistent Carbohydrates Diet provides for energy/protein needs (1, 977 Kcal/86 g) during LOS. Burn Absent Trauma Absent GI Symptoms None Food Allergy No Skin Integrity/Comment Assessment WNL. Minimum of two criteria No #1 Nutrition Diagnosis Altered nutrition-related laboratory values Etiology Ongiong and concomitant chronic metabolic conditions. As Evidenced by Signs and Symptoms JG/CKD, CHF and T2DM conditions, according to History & Physical notes. Is patient on ventilator? No Is Patient Ambulatory and/or Out of Bed Yes REE-(Dooly-St. Jeor-ambulatory/OOB) [ 2568.319 [id number]] Kcal/Kg value to use for calculation 22 Approximate Energy Requirements Using 2376 kcal/Kg Calculation Used for Recommendations Kcal/kg Additional Notes Protein: 0.8-1.2 g/Kg ABW; 86- 130 g/day. Fluids: 1 ml/Kcal, or as per MD. Nutrition Intervention Change Diet Order: Change to Cardiac/Consistent Carbohydrates -Renal- Diet. Goal #1 Adjust the dietary intervention to better serve Pt's needs and clinical conditions during LOS. Goal #2 Maintain body weight within +/ -3% of admission body weight during LOS. Follow-Up By: 12/31/21 Additional Comments Continue monitoring food tolerance, %PO intake of meals , and BM.
[2021-12-28] MEDS: INSULIN LISPRO 100 UNIT/ML SUB-Q SCH ×2 (08:55→12:48)
[2021-12-28] MEDS: hydrALAZINE 20 MG/1 ML INJ IV SCH ×2 (08:58→10:05)
[2021-12-28] MEDS ORDERED: INSULIN NPH/REGULAR 70/30 INJ SUB-Q SCH (09:00)
[2021-12-28] MEDS ORDERED: hydrALAZINE 20 MG/1 ML INJ IV PRN (10:00)
--- NOTE | 2021-12-28 10:41 | Progress Note ---
Assessment and Plan - Patient Problems (1) Chronic kidney disease, stage 3b Current Visit: Yes Status: Acute Plan to address problem: Chronic kidney disease presumably secondary to diabetic kidney disease with superimposed hypertensive nephrosclerosis. Kidney function is close to his baseline. Monitor renal function with diuresis. (2) Chest pain Current Visit: Yes Status: Acute Plan to address problem: Monorail Helper has been consulted. Patient refused stress test. (3) Hypokalemia Current Visit: Yes Status: Acute Plan to address problem: Hypokalemia secondary to renal losses with diuretics. Supplement potassium and follow-up level (4) Acute on chronic HFrEF (heart failure with reduced ejection fraction) Current Visit: Yes Status: Acute Plan to address problem: Continue IV diuretics. Strict intake and output monitoring. 2 g sodium 40 ounces per day fluid restriction. (5) Type 2 diabetes mellitus with diabetic chronic kidney disease Current Visit: Yes Status: Acute Plan to address problem: Blood sugar management by primary attending (6) Hypertensive chronic kidney disease with stage 1 through stage 4 chronic kidney disease, or unspecified chronic kidney disease Current Visit: Yes Status: Acute Plan to address problem: Follow-up blood pressure on current medications (7) Anemia in chronic kidney disease Current Visit: Yes Status: Acute Plan to address problem: Follow-up hemoglobin. Check iron stores. Will need to start erythropoiesis stimulating agent as an outpatient Subjective Date of service: 12/28/21 Principal diagnosis: Acute kidney injury, chronic kidney disease Interval history: Patient seen lying in bed. He refused stress test. He states "I do not need it". He denies any chest pain, shortness of breath, nausea vomiting. Objective - Exam Narrative Exam: Middle-aged -[place] male lying in bed looks older than stated age in no acute distress HEENT: NCAT, pale conjunctiva anicteric sclera Neck: Supple, no venous distention CVS: S1S2 RRR with no murmur, rub or gallop Chest: Clear to auscultation Abdomen: Protuberant, soft, nontender, no organomegaly, edema anterior abdominal wall bowel sounds are present Extremities: 2-3+ pitting edema edema Genitourinary deferred Skin warm and dry Neuro: Awake, alert no focal deficits - Vital Signs Vital signs: Vital Signs - 12hr 12/27/21 12/28/21 12/28/21 22:51 00:00 03:29 Temperature 98.8 F 98.2 F Pulse Rate 97 H 101 H Respiratory 20 20 Rate Blood Pressure 171/101 168/90 O2 Sat by Pulse 90 96 95 Oximetry 12/28/21 12/28/21 12/28/21 07:33 08:05 10:05 Temperature 98.9 F Pulse Rate 97 H 98 H Respiratory 18 Rate Blood Pressure 187/94 187/94 O2 Sat by Pulse 91 98 Oximetry - Lab 12/27/21 04:18 12/27/21 04:18 Most recent lab results Calcium 9.4 mg/dL (8.4-10.2) 12/27/21 04:18 Medications & Allergies - Medications Allergies/Adverse Reactions: Allergies No Known Allergies Allergy (Verified 12/21/21 17:42) Home Medications: Home Medications Medication Instructions Recorded Confirmed Last Taken Type Dorzolamide HCl/Timolol Maleat 1 drop UD DAILY 12/22/21 12/22/21 1 Day Ago History [Dorzolamide-Timolol Eye Drops] ~12/21/21 Latanoprost 0.005% 0.005 drop UD DAILY 12/22/21 12/22/21 1 Day Ago History ~12/21/21 drops Potassium 20 mg PO DAILY 12/22/21 12/22/21 1 Day Ago History ~12/21/21 20 mg Furosemide [Lasix] 40 mg PO DAILY #30 12/27/21 Unknown Rx Hydralazine HCl 50 mg PO BID #30 12/27/21 Unknown Rx Insulin NPH/Regular [NovoLIN 70/30] 10 unit SQ BIDDIAB 30 Days 12/27/21 Unknown Rx Isosorbide Dinitrate [Isordil] 10 mg PO DAILY #30 12/27/21 Unknown Rx amLODIPine 10 mg PO DAILY #30 12/27/21 Unknown Rx carvediloL [Coreg] 12.5 mg PO BID #60 12/27/21 Unknown Rx Active Medications: Generic Name Dose Route Start Last Admin Trade Name Freq PRN Reason Stop Dose Admin Acetaminophen 650 mg 12/26/21 22:16 Acetaminophen 325 Mg Tab PO Q4H PRN Pain MILD(1-3)/Fever >100.5/LU Dextrose 50 ml 12/26/21 22:16 Dextrose 50% In Water (25gm) 50 Ml Syringe IV Q30MIN PRN Hypoglycemia Protocol Heparin Sodium (Porcine) 5,000 unit 12/27/21 06:00 12/28/21 06:36 Heparin 5,000 Unit/1 Ml Vial SUB-Q Not Given Q8HR [facility] Hydralazine HCl 50 mg 12/28/21 14:00 Hydralazine 25 Mg Tab PO Q8HR [facility] Hydralazine HCl 20 mg 12/28/21 09:00 12/28/21 10:05 Hydralazine 20 Mg/1 Ml Inj IV 12/28/21 12:00 20 mg ONCE@0900 [facility] Administration Hydralazine HCl 10 mg 12/28/21 10:00 Hydralazine 20 Mg/1 Ml Inj IV Q4H PRN Hypertension Insulin Human Isoph/Insulin Regular 10 unit 12/28/21 09:00 12/28/21 09:36 Insulin Nph/Regular 70/30 Inj SUB-Q 10 unit BIDDIAB [facility] Administration Insulin Human Lispro 0 unit 12/27/21 02:00 12/28/21 08:55 Insulin Lispro 100 Unit/Ml SUB-Q 10 unit ACHS [facility] Administration Protocol Magnesium Hydroxide 30 ml 12/26/21 22:16 Magnesium Hydroxide (Mom) Oral Liqd Udc PO Q4H PRN Constipation Morphine Sulfate 2 mg 12/26/21 22:16 Morphine 2 Mg/1 Ml Inj IV Q4H PRN Pain, Moderate (4-6) Morphine Sulfate 4 mg 12/26/21 22:16 Morphine 4 Mg/1 Ml Inj IV Q4H PRN Pain , Severe (7-10) Nitroglycerin 0.4 mg 12/26/21 22:16 Nitroglycerin 0.4 Mg Tab Subl SL .Q5MIN PRN Chest Pain Ondansetron HCl 4 mg 12/26/21 22:16 Ondansetron 4 Mg/2 Ml Inj IV Q8H PRN Nausea And Vomiting Sodium Chloride 10 ml 12/27/21 10:00 12/28/21 10:06 Sodium Chloride 0.9% 10 Ml Flush Syringe IV 10 ml BID PAT Administration
--- NOTE | 2021-12-28 11:07 | Consultation ---
History of Present Illness - Reason for Consult Consult date: 12/28/21 Reason for consult: schizophrenia - Chief Complaint Chief complaint: Chest pain Shortness of Breath - History of Present Psychiatric Illness The patient is a 61 year old male with history of schizophrenia who was admitted for chest pain. In my encounter with the patient, he is verbally aggressive stating, I don't need psych, please go ahead and leave me alone. Per nurse, the patient is labile but no aggressive behavior reported. Psychotropic medication c ompliance is unknown. PAST PSYCHIATRIC HISTORY: PAST MEDICAL HISTORY: None reported or document Family Psychiatric History: None reported or documented SOCIAL HISTORY REVIEW OF SYSTEMS MENTAL STATUS EXAMINATION Diagnoses: Schizophrenia Treatment Plan 1013 Continue home meds Start Haldol 10mg po BID PSYCHOTHERAPY: Supportive psychotherapy provided MEDICAL: Per primary team DELIRIUM PRECAUTIONS: Please re-orient patient frequently, keep lights on during the day, and minimize benzodiazepines and opiates as these medications could worsen patient's confusion. PRODUCTION SERVICE MANAGER: Per medical team DISPOSITION: Do not recommend acute psychiatric inpatient treatment. Research Manufacturing Operator will provide patient with psychiatric out patient resources. Will follow. Thank you for the consult. Case staffed with Dr. Arenas Medications and Allergies Medications and Allergies Allergies Allergy/AdvReac Type Severity Reaction Status Date / Time No Known Allergies Allergy Verified 12/21/21 17:42 Home Medications Medication Instructions Recorded Confirmed Last Taken Type Dorzolamide HCl/Timolol Maleat 1 drop UD DAILY 12/22/21 12/22/21 1 Day Ago History [Dorzolamide-Timolol Eye Drops] ~12/21/21 Latanoprost 0.005% 0.005 drop UD DAILY 12/22/21 12/22/21 1 Day Ago History ~12/21/21 drops Potassium 20 mg PO DAILY 12/22/21 12/22/21 1 Day Ago History ~12/21/21 20 mg Furosemide [Lasix] 40 mg PO DAILY #30 12/27/21 Unknown Rx Hydralazine HCl 50 mg PO BID #30 12/27/21 Unknown Rx Insulin NPH/Regular [NovoLIN 70/30] 10 unit SQ BIDDIAB 30 Days 12/27/21 Unknown Rx Isosorbide Dinitrate [Isordil] 10 mg PO DAILY #30 12/27/21 Unknown Rx amLODIPine 10 mg PO DAILY #30 12/27/21 Unknown Rx carvediloL [Coreg] 12.5 mg PO BID #60 12/27/21 Unknown Rx Active Meds: Active Medications Acetaminophen (Acetaminophen 325 Mg Tab) 650 mg PO Q4H PRN PRN Reason: Pain MILD(1-3)/Fever >100.5/LU Dextrose (Dextrose 50% In Water (25gm) 50 Ml Syringe) 50 ml IV Q30MIN PRN; Protocol PRN Reason: Hypoglycemia Heparin Sodium (Porcine) (Heparin 5,000 Unit/1 Ml Vial) 5,000 unit SUB-Q Q8HR [facility] Last Admin: 12/28/21 06:36 Dose: Not Given Hydralazine HCl (Hydralazine 25 Mg Tab) 50 mg PO Q8HR [facility] Hydralazine HCl (Hydralazine 20 Mg/1 Ml Inj) 20 mg IV ONCE@0900 [facility] Stop: 12/28/21 12:00 Last Admin: 12/28/21 10:05 Dose: 20 mg Hydralazine HCl (Hydralazine 20 Mg/1 Ml Inj) 10 mg IV Q4H PRN PRN Reason: Hypertension Insulin Human Isoph/Insulin Regular (Insulin Nph/Regular 70/30 Inj) 10 unit SUB-Q BIDDIAB [facility] Last Admin: 12/28/21 09:36 Dose: 10 unit Insulin Human Lispro (Insulin Lispro 100 Unit/Ml) 0 unit SUB-Q [facility]; Protocol Last Admin: 12/28/21 08:55 Dose: 10 unit Magnesium Hydroxide (Magnesium Hydroxide (Mom) Oral Liqd Udc) 30 ml PO Q4H PRN PRN Reason: Constipation Morphine Sulfate (Morphine 2 Mg/1 Ml Inj) 2 mg IV Q4H PRN PRN Reason: Pain, Moderate (4-6) Morphine Sulfate (Morphine 4 Mg/1 Ml Inj) 4 mg IV Q4H PRN PRN Reason: Pain , Severe (7-10) Nitroglycerin (Nitroglycerin 0.4 Mg Tab Subl) 0.4 mg SL .Q5MIN PRN PRN Reason: Chest Pain Ondansetron HCl (Ondansetron 4 Mg/2 Ml Inj) 4 mg IV Q8H PRN PRN Reason: Nausea And Vomiting Sodium Chloride (Sodium Chloride 0.9% 10 Ml Flush Syringe) 10 ml IV BID [facility] Last Admin: 12/28/21 10:06 Dose: 10 ml Mental Status Exam - Vital signs Last Vital Signs Temp 98.9 F 12/28/21 07:33 Pulse 98 H 12/28/21 10:05 Resp 18 12/28/21 07:33 BP 187/94 12/28/21 10:05 Pulse Ox 98 12/28/21 08:05 Results Result Diagrams: 12/27/21 04:18 12/27/21 04:18 Abnormal lab results 12/27/21 12/27/21 12/27/21 Range/Units 08:32 11:36 16:27 POC Glucose 172 H 194 H 327 H (70-105) mg/dL 12/27/21 12/28/21 Range/Units 20:27 07:33 POC Glucose 369 H 442 H (70-105) mg/dL All other labs normal.
[2021-12-28 11:23] VITALS: BP 170/85
[2021-12-28 11:24] LABS: Calcium 9.3 mg/dL (8.4-10.2)
--- NOTE | 2021-12-28 12:12 | Electrocardiograph Report ---
[facility] Test Date: 2021-12-27 Test Time: 06:59:27 Pat Name: LIZZY FIELD JR Department: Room: A456 1 Gender: M Metal Sorter: PRAFUL : 1960 Requested By: SYLVIA FRANK Order Number: [id number] Reading MD: Fady Eisenberg Measurements Intervals [place] Rate: 95 P: 52 HI: 163 QRS: 41 QRSD: 85 T: 268 QT: 357 QTc: 448 Interpretive Statements Sinus rhythm Probable left atrial enlargement Anterior infarct, old Nonspecific T abnormalities, lateral leads Compared to ECG 12/26/2021 09:03:10 No significant change noted. Electronically Signed On 12-28-2021 12:12:00 EDT by Fady Eisenberg
[2021-12-28] MEDS ORDERED: hydrALAZINE 25 MG TAB PO SCH (14:00)
--- NOTE | 2021-12-28 18:47 | Electrocardiograph Report ---
[facility] Test Date: 2021-12-26 Test Time: 09:03:10 Pat Name: LIZZY FIELD JR Department: Room: A456 Gender: M Beverage Steward: CRISTOBAL : 1960 Requested By: ED DOC Order Number: [id number] Reading MD: Dion De La Torre Measurements Intervals [place] Rate: 86 P: 26 IA: 161 QRS: 35 QRSD: 81 T: 242 QT: 384 QTc: 459 Interpretive Statements Sinus rhythm Probable left atrial enlargement Probable LVH with secondary repol abnrm Compared to ECG 12/22/2021 11:36:46 No significant changes Electronically Signed On 12-28-2021 18:47:16 EDT by Dion De La Torre
== END 2021-12-28 13:32 | disposition left against medical advice (07) | DRG 291 ==
LOC: ED 08:40 → 4A 22:17
PROVIDERS: ADMIT Internal Medicine Geriatric Medicine; ATTEND Internal Medicine
DX: I13.0 Hypertensive heart and chronic kidney disease with heart failure and stage 1 through stage 4 chronic kidney disease, or unspecified chronic kidney disease (principal); N17.0 Acute kidney failure with tubular necrosis; I50.23 Acute on chronic systolic (congestive) heart failure; F20.9 Schizophrenia, unspecified; J45.901 Unspecified asthma with (acute) exacerbation; E11.22 Type 2 diabetes mellitus with diabetic chronic kidney disease; N18.32 Chronic kidney disease, stage 3b; E87.6 Hypokalemia; D63.1 Anemia in chronic kidney disease; E11.65 Type 2 diabetes mellitus with hyperglycemia; Z79.4 Long term (current) use of insulin; Z83.3 Family history of diabetes mellitus; Z53.29 Procedure and treatment not carried out because of patient's decision for other reasons
CPT/HCPCS: 36415; 71046; 80048; 80053; 82962; 83735; 84484; 85025; 93005; 94644; G0378; Q0177; Q9967; J0360; J1815; J1940

== ENCOUNTER 2021-12-28 16:58 | Emergency (ER) | payer MEDICAID ==
[2021-12-28] MEDS ORDERED: hydrALAZINE 25 MG TAB PO ONE (20:26)
[2021-12-28] MEDS: amLODIPine 5 MG TAB PO ONE ×2 (20:48→20:56)
[2021-12-28] MEDS: POTASSIUM CHLORIDE ER 20 MEQ TAB PO ONE ×2 (20:48→20:59)
[2021-12-28] MEDS: FUROSEMIDE 20 MG TAB PO ONE ×2 (20:49→20:59)
[2021-12-28] MEDS: carvediloL 6.25 MG TAB PO ONE ×2 (20:49→20:59)
--- NOTE | 2021-12-28 21:01 | Emergency Department Report ---
ED General Adult HPI - General Chief complaint: Extremity Problem,Nontraumatic Stated complaint: SWOLLEN LEGS Time Seen by Provider: 12/28/21 20:09 Source: patient, EMS Mode of arrival: Stretcher Limitations: No Limitations - History of Present Illness Initial comments: Ms. Harris is a 61-year-old male with multiple complaints multiple problem list was admitted for rule out [place] chest pain 3 days ago. Patient was actually discharged today has had psych clearance has had nephrology clearance has had medicine clearance has reasonable discharge plan. Patient states tonight he is here for bilateral lower extremity edema. Patient was evaluated by cards on medication regimen for BP and edema management. Patient has good follow-up at the [facility] we will follow-up tomorrow. Patient given dose of BP medications today. Patient discharged at this time family member to diamond picker from ED. Patient denies chest pain there is no shortness of breath there is no nausea no vomiting no diaphoresis no lightheadedness or dizziness. He is alert oriented x3 there is no SI or HI at this time patient appears with no acute distress. Patient does have a porter sample case. - Related Data Home Medications Medication Instructions Recorded Confirmed Last Taken Dorzolamide HCl/Timolol Maleat 1 drop UD DAILY 12/22/21 12/22/21 1 Day Ago [Dorzolamide-Timolol Eye Drops] ~12/21/21 Latanoprost 0.005% 0.005 drop UD DAILY 12/22/21 12/22/21 1 Day Ago ~12/21/21 drops Potassium 20 mg PO DAILY 12/22/21 12/22/21 1 Day Ago ~12/21/21 20 mg Previous Rx's Medication Instructions Recorded Last Taken Type Furosemide [Lasix] 40 mg PO DAILY #30 12/27/21 Unknown Rx Hydralazine HCl 50 mg PO BID #30 12/27/21 Unknown Rx Insulin NPH/Regular [NovoLIN 70/30] 10 unit SQ BIDDIAB 30 Days 12/27/21 Unknown Rx Isosorbide Dinitrate [Isordil] 10 mg PO DAILY #30 12/27/21 Unknown Rx amLODIPine 10 mg PO DAILY #30 12/27/21 Unknown Rx carvediloL [Coreg] 12.5 mg PO BID #60 12/27/21 Unknown Rx Allergies Allergy/AdvReac Type Severity Reaction Status Date / Time No Known Allergies Allergy Verified 12/28/21 17:04 ED Review of Systems ROS: Stated complaint: SWOLLEN LEGS Other details as noted in HPI Constitutional: denies: chills, fever Eyes: denies: eye pain, eye discharge, vision change ENT: denies: ear pain, throat pain Respiratory: denies: cough, shortness of breath, wheezing Cardiovascular: denies: chest pain, palpitations Endocrine: no symptoms reported Gastrointestinal: denies: abdominal pain, nausea, diarrhea Genitourinary: denies: urgency, dysuria Musculoskeletal: denies: back pain, joint swelling, arthralgia Skin: denies: rash, lesions Neurological: denies: headache, weakness, paresthesias Psychiatric: denies: anxiety, depression Hematological/Lymphatic: denies: easy bleeding, easy bruising ED Past Medical Hx - Past Medical History Hx Hypertension: Yes Hx Heart Attack/AMI: No Hx Congestive Heart Failure: Yes Hx Diabetes: Yes Hx Deep Vein Thrombosis: No Hx Liver Disease: No Hx Arthritis: No Hx Psychiatric Treatment: Yes (schizo) Hx Asthma: Yes Hx COPD: No Hx HIV: No - Surgical History Hx Coronary Stent: No Hx Pacemaker: No Hx Internal Defibrillator: No - Social History Smoking Status: Unknown if ever smoked - Medications Home Medications: Home Medications Medication Instructions Recorded Confirmed Last Taken Type Dorzolamide HCl/Timolol Maleat 1 drop UD DAILY 12/22/21 12/22/21 1 Day Ago History [Dorzolamide-Timolol Eye Drops] ~12/21/21 Latanoprost 0.005% 0.005 drop UD DAILY 12/22/21 12/22/21 1 Day Ago History ~12/21/21 drops Potassium 20 mg PO DAILY 12/22/21 12/22/21 1 Day Ago History ~12/21/21 20 mg Furosemide [Lasix] 40 mg PO DAILY #30 12/27/21 Unknown Rx Hydralazine HCl 50 mg PO BID #30 12/27/21 Unknown Rx Insulin NPH/Regular [NovoLIN 70/30] 10 unit SQ BIDDIAB 30 Days 12/27/21 Unknown Rx Isosorbide Dinitrate [Isordil] 10 mg PO DAILY #30 12/27/21 Unknown Rx amLODIPine 10 mg PO DAILY #30 12/27/21 Unknown Rx carvediloL [Coreg] 12.5 mg PO BID #60 12/27/21 Unknown Rx ED Physical Exam - General Limitations: No Limitations General appearance: alert, in no apparent distress - Head Head exam: Present: atraumatic, normocephalic - Eye Eye exam: Present: EOMI Pupils: Present: normal accommodation - ENT ENT exam: Present: mucous membranes moist - Neck Neck exam: Present: normal inspection, full ROM. Absent: tenderness - Respiratory Respiratory exam: Present: normal lung sounds bilaterally. Absent: respiratory distress, wheezes, rales, rhonchi, stridor, chest wall tenderness - Cardiovascular Cardiovascular Exam: Present: regular rate, normal rhythm, normal heart sounds. Absent: systolic murmur, diastolic murmur, rubs, gallop - GI/Abdominal GI/Abdominal exam: Present: soft, normal bowel sounds. Absent: distended, tenderness, bruit, hernia - Rectal Rectal exam: Present: deferred - Extremities Exam Extremities exam: Present: normal inspection, full ROM, normal capillary refill. Absent: pedal edema, calf tenderness - Back Exam Back exam: Present: normal inspection, full ROM. Absent: CVA tenderness (R) - Neurological Exam Neurological exam: Present: alert, oriented X3, normal gait, reflexes normal. Absent: motor sensory deficit - Expanded Neurological Exam Expanded Patient oriented to: Present: person, place, time Speech: Present: fluid speech Motor strength exam: RUE: 5, LUE: 5, RLE: 5, LLE: 5 Best Eye Response (Efren): (4) open spontaneously Best Motor Response (Efren): (6) obeys commands Best Verbal Response (Efren): (5) oriented [place] Total: 15 - Psychiatric Psychiatric exam: Present: normal affect, normal mood. Absent: homicidal ideation, suicidal ideation - Skin Skin exam: Present: warm, dry, intact, normal color. Absent: rash ED Course Vital Signs 12/28/21 12/28/21 12/28/21 17:02 20:48 20:49 Pulse Rate 100 H 103 H 103 H Blood Pressure 158/86 158/86 Blood Pressure 157/90 [Left] O2 Sat by Pulse 97 Oximetry ED Medical Decision Making - Medical Decision Making Patient will follow up with primary care doctor at [place] tomorrow. Patient will continue to follow consultants including psychiatry, nephrology, and primary care. Family member called will diamond picker patient. Patient is currently alert oriented x3 amatory with steady gait. Patient appears in no acute distress. Patient is tolerating p.o. intake. Patient denies other symptoms. Will be DC'd to family member upon arrival. Critical care attestation.: If time is entered above; I have spent that time in minutes in the direct care of this critically ill patient, excluding procedure time. ED Disposition Clinical Impression: Localized swelling of both lower legs Disposition: HOME / SELF CARE / HOMELESS Is pt being admited?: No Does the pt Need Aspirin: No Condition: Stable Instructions: Hypertension, Adult, Managing Your Hypertension Additional Instructions: Take all medications as prescribed follow-[facility] with [facility] tomorrow. Keep all his appointments as scheduled. Return to emergency department should symptoms worsen. . Referrals: MABLE SADLER MD [Staff Physician] - [facility] Time of Disposition: 21:02
[2021-12-28 22:32] VITALS: BP 152/76
== END 2021-12-28 22:32 | disposition home or self-care (01) ==
LOC: ED 16:58
DX: R22.43 Localized swelling, mass and lump, lower limb, bilateral (principal)
CPT/HCPCS: 99283

== ENCOUNTER 2021-12-29 00:03 | Emergency (ER) | payer MEDICAID ==
[2021-12-29 00:34] VITALS: BP 184/89
[2021-12-29 00:58] LABS: Basophils # (Auto) 0.1 K/mm3 (0.0-0.1); Basophils % (Auto) 1.6 % (0.0-1.8); Eosinophils # (Auto) 0.1 K/mm3 (0.0-0.4); Eosinophils % (Auto) 1.6 % (0.0-4.3); Hematocrit 31.5 % (35.5-45.6); Hemoglobin 9.9 gm/dl (11.8-15.2); Lymphocytes # (Auto) 0.9 K/mm3 (1.2-5.4); Lymphocytes % (Auto) 14.8 % (13.4-35.0); Mean Corpuscular HGB Conc 31 % (32-34); Mean Corpuscular Volume 70 fl (84-94); Monocytes # (Auto) 0.6 K/mm3 (0.0-0.8); Monocytes % (Auto) 9.1 % (0.0-7.3); Platelet Count 520 K/mm3 (140-440); Red Blood Count 4.48 M/mm3 (3.65-5.03)
--- NOTE | 2021-12-29 01:09 | XRay Report ---
XR chest routine 2V INDICATION / CLINICAL INFORMATION: CHEST PAIN. COMPARISON: 12/26/2021 FINDINGS: SUPPORT DEVICES: None. HEART /PULMONARY VASCULATURE: No significant abnormality. LUNGS / PLEURA: Unchanged mild interstitial edema. Small-moderate bilateral pleural effusions, right greater than left, stable. No pneumothorax. IMPRESSION: No significant change in right greater than left pleural effusions with mild interstitial edema. Signer Name: Pietro Jung MD Signed: 12/29/2021 1:04 AM Workstation Name: [id number]
[2021-12-29 01:16] LABS: Albumin 3.4 g/dL (3.9-5); Calcium 9.7 mg/dL (8.4-10.2)
--- NOTE | 2021-12-29 11:43 | Electrocardiograph Report ---
[facility] Test Date: 2021-12-29 Test Time: 00:08:33 Pat Name: LIZZY FIELD JR Department: Room: Gender: M Fish Machine Feeder: SHERRI : 1960 Requested By: ED DOC Order Number: [id number] Reading MD: Fady Eisenberg Measurements Intervals [place] Rate: 98 P: 53 TN: 214 QRS: 86 QRSD: 79 T: -13 QT: 375 QTc: 479 Interpretive Statements Sinus rhythm Prolonged TN interval Consider left ventricular hypertrophy Anterior Q waves, possibly due to LVH Compared to ECG 12/27/2021 06:59:27 First degree AV block now present Non specific T wave changes noted. Electronically Signed On 12-29-2021 11:42:45 EDT by Fady Eisenberg
== END 2021-12-29 09:58 | disposition left against medical advice (07) ==
LOC: ED 00:03
DX: R07.9 Chest pain, unspecified (principal); Z53.21 Procedure and treatment not carried out due to patient leaving prior to being seen by health care provider
CPT/HCPCS: 36415; 71046; 80053; 84484; 85025; 93005

== ENCOUNTER 2022-04-05 17:10 | Emergency (ER) | payer MEDICAID ==
--- NOTE | 2022-04-05 18:37 | XRay Report ---
CHEST 2 VIEWS INDICATION / CLINICAL INFORMATION: Dyspnea. COMPARISON: 12/29/21 FINDINGS: SUPPORT DEVICES: None. HEART / MEDIASTINUM: Heart is upper normal size and stable. LUNGS / PLEURA: Moderate bilateral pleural effusions are unchanged. No pneumothorax. ADDITIONAL FINDINGS: No significant additional findings. IMPRESSION: 1. No change in moderate bilateral pleural effusions. Signer Name: Nils Villa MD Signed: 04/05/2022 6:33 PM Workstation Name: [id number]
[2022-04-05 18:47] LABS: Basophils # (Auto) 0.1 K/mm3 (0.0-0.1); Basophils % (Auto) 0.9 % (0.0-1.8); Eosinophils # (Auto) 0.7 K/mm3 (0.0-0.4); Eosinophils % (Auto) 10.5 % (0.0-4.3); Hematocrit 25.9 % (35.5-45.6); Hemoglobin 8.1 gm/dl (11.8-15.2); Lymphocytes # (Auto) 0.6 K/mm3 (1.2-5.4); Lymphocytes % (Auto) 9.5 % (13.4-35.0); Mean Corpuscular HGB Conc 31 % (32-34); Mean Corpuscular Volume 74 fl (84-94); Monocytes # (Auto) 0.5 K/mm3 (0.0-0.8); Monocytes % (Auto) 7.4 % (0.0-7.3); Platelet Count 367 K/mm3 (140-440); Red Blood Count 3.49 M/mm3 (3.65-5.03)
[2022-04-05 18:52] VITALS: BP 135/68
[2022-04-05 19:04] LABS: Albumin 3.5 g/dL (3.9-5); Calcium 9.2 mg/dL (8.4-10.2)
[2022-04-05 19:06] LABS: Red Cell Distribution Width 20.7 % (13.2-15.2)
[2022-04-05 19:35] LABS: Chol/HDL Ratio 1.6 %
--- NOTE | 2022-04-07 09:47 | Electrocardiograph Report ---
[facility] Test Date: 2022-04-05 Test Time: 18:45:26 Pat Name: LIZZY FIELD JR Department: Room: Gender: M Auto Body Repair Estimator: PAULO : 1960 Requested By: DAVID BAEZ Order Number: [id number] Reading MD: Augustus Collins Measurements Intervals [place] Rate: 83 P: 41 DC: 161 QRS: 54 QRSD: 86 T: 220 QT: 470 QTc: 552 Interpretive Statements Sinus rhythm Probable LVH with secondary repol abnrm nonspecific st-t Compared to ECG 12/29/2021 00:08:33 First degree AV block no longer present Q waves no longer present Electronically Signed On 04-07-2022 9:46:33 EDT by Augustus Collins
== END 2022-04-07 13:33 | disposition left against medical advice (07) ==
LOC: ED 17:10
DX: R06.00 Dyspnea, unspecified (principal); Z53.21 Procedure and treatment not carried out due to patient leaving prior to being seen by health care provider
CPT/HCPCS: 36415; 71046; 80053; 80061; 84484; 85025; 93005